=== PATIENT | male | born 1985 | race Two or more races ===

== ENCOUNTER 2022-05-08 16:58 | Emergency (ER) | payer MEDICAID, OTHER ==
[~2022-05-08] VITALS: Ht 172.7 cm; Wt 63.5 kg
[2022-05-08 17:08] VITALS: BP 140/90
== END 2022-05-08 19:54 | disposition left against medical advice (07) ==
LOC: ER 16:58 → EEVIPCON 16:58 → EDBD 16:58 → ER 18:45
DX: R22.0 Localized swelling, mass and lump, head (principal); M25.512 Pain in left shoulder; Z53.21 Procedure and treatment not carried out due to patient leaving prior to being seen by health care provider; Y04.8XXA Assault by other bodily force, initial encounter; Y93.89 Activity, other specified; Y92.89 Other specified places as the place of occurrence of the external cause; Y99.8 Other external cause status
CPT/HCPCS: 70450; 70486; 72125; 73030